=== PATIENT | male | born 1985 | race Caucasian/White ===

== ENCOUNTER → 2019-05-08 09:25 | Outpatient (BNVA) | payer MEDICARE, MEDICAID, SELFPAY | PROVIDERS: Family Provider Family Medicine; PCP Family Medicine; Visit Provider Nurse Practitioner Family | DX: J11.1 Influenza due to unidentified influenza virus with other respiratory manifestations (principal) | CPT/HCPCS: 87804 ==

== ENCOUNTER → 2019-07-10 08:30 | Outpatient (BNVA) | payer MEDICARE, MEDICAID, SELFPAY | PROVIDERS: Family Provider Family Medicine; PCP Family Medicine; Visit Provider Psychiatry & Neurology Psychiatry | DX: F41.1 Generalized anxiety disorder (principal); F25.8 Other schizoaffective disorders; F17.200 Nicotine dependence, unspecified, uncomplicated | CPT/HCPCS: 99204 ==

== ENCOUNTER → 2019-07-22 15:17 | Outpatient (BNVA) | payer MEDICARE, MEDICAID, SELFPAY | PROVIDERS: Family Provider Family Medicine; PCP Family Medicine; Visit Provider Family Medicine | DX: R74.8 Abnormal levels of other serum enzymes (principal); R53.82 Chronic fatigue, unspecified; G47.10 Hypersomnia, unspecified | CPT/HCPCS: 80053; 85651; 86140 ==

== ENCOUNTER 2019-09-23 20:00 | Outpatient (CLI) | payer MEDICARE, MEDICAID, SELFPAY | END 2019-09-23 20:01 | disposition home or self-care (01) | LOC: SLEEP 09-24 08:45 | PROVIDERS: Family Provider Family Medicine; PCP Family Medicine; Visit Provider Family Medicine | DX: G47.10 Hypersomnia, unspecified (principal) | CPT/HCPCS: 95810 ==

== ENCOUNTER → 2020-03-03 18:00 | Outpatient (BNVA) | payer MEDICARE, MEDICAID, SELFPAY | PROVIDERS: Family Provider Family Medicine; PCP Family Medicine; Visit Provider Family Medicine | DX: M54.16 Radiculopathy, lumbar region (principal); R74.8 Abnormal levels of other serum enzymes; M62.81 Muscle weakness (generalized); E78.00 Pure hypercholesterolemia, unspecified | CPT/HCPCS: 80053; 80061; 83735; 85651; 86140 ==

== ENCOUNTER 2020-06-07 17:06 | Outpatient (CLI) | payer MEDICARE, MEDICAID, SELFPAY ==
--- NOTE | 2020-06-07 17:30 | MR_ITS ---
WS: [id number] MRI LUMBAR SPINE NONCONTRAST HISTORY: M62.81 - Muscle weakness (generalized) COMPARISON: None available. TECHNIQUE: Sagittal and axial multisequence imaging is submitted. Small disc osteophyte complex at C5-6 encroaching upon the ventral thecal sac. Mild S-shaped curvature lumbar spine. Posterior lumbar alignment is normal. Mild disc space narrowing and desiccation at L5-S1. There are s mall Schmorl's nodes at T12 and L2. No fracture or marrow edema. Conus terminates normally at L1-2 disc level. L1-L2: Mild osteophytic ridging and annular disc bulging. No stenosis. L2-L3: Very mild annular disc bulging without stenosis. L3-L4: Mild annular disc bulging with mild facet arthritis. No stenosis. L4-L5: Mild annular disc bulging and mild ligamentum flavum disease. No significant stenosis. L5-S1: Small central disc protrusion with annular fissures. Disc extends to the S1 nerve roots bilate rally but does not displace or contact the nerve roots. There is very slight narrowing of the lateral recesses and foramina. 1.5 cm RIGHT renal cyst. MR/MR lumbar spine wo con* [id number] IMPRESSION: 1. Small central disc protrusion with annular fissures at L5-S1. Encroaching u silvano but not contacting the S1 nerve roots. 2. Very mild narrowing of the lateral recesses and foramina at L5-S1 due to di sc disease and facet arthritis.
== END 2020-06-07 17:07 | disposition home or self-care (01) ==
PROVIDERS: PCP Family Medicine; Visit Provider Nurse Practitioner Family
DX: M62.81 Muscle weakness (generalized) (principal); M51.27 Other intervertebral disc displacement, lumbosacral region; M51.37 Other intervertebral disc degeneration, lumbosacral region; M13.88 Other specified arthritis, other site
CPT/HCPCS: 72148

== ENCOUNTER 2020-06-29 06:00 | Outpatient (RCR) | payer MEDICARE, MEDICAID, SELFPAY | END 2020-07-16 23:59 | disposition home or self-care (01) | LOC: MPT 06:00 | PROVIDERS: PCP Family Medicine; Referring Provider Neurological Surgery; Visit Provider Neurological Surgery | DX: R29.898 Other symptoms and signs involving the musculoskeletal system (principal) | CPT/HCPCS: 97110; 97161 ==

== ENCOUNTER 2020-07-17 06:00 | Outpatient (RCR) | payer MEDICARE, MEDICAID, SELFPAY | END 2020-08-16 23:59 | disposition home or self-care (01) | LOC: MPT 06:00 | PROVIDERS: PCP Family Medicine; Referring Provider Neurological Surgery; Visit Provider Neurological Surgery | DX: R29.898 Other symptoms and signs involving the musculoskeletal system (principal) | CPT/HCPCS: 97110; 97116 ==

== ENCOUNTER → 2021-04-25 16:14 | Outpatient (BNVA) | payer OTHER, SELFPAY | PROVIDERS: PCP Family Medicine; Visit Provider Nurse Practitioner Family | DX: N39.0 Urinary tract infection, site not specified (principal); M54.16 Radiculopathy, lumbar region | CPT/HCPCS: 81000 ==

== ENCOUNTER → 2023-05-24 12:08 | Outpatient (BNVA) | payer MEDICARE, MEDICAID, SELFPAY | PROVIDERS: PCP Family Medicine; Visit Provider Emergency Medicine | DX: R35.0 Frequency of micturition (principal); Z12.5 Encounter for screening for malignant neoplasm of prostate | CPT/HCPCS: 81000; 87086; G0103 ==